=== PATIENT | male | born 1955 | race Caucasian/White ===

== ENCOUNTER 2021-03-21 09:15 | Emergency (ER) | payer MEDICARE ==
--- NOTE | 2021-03-21 09:19 | PCM.EKG ---
#1 Interpretation EKG Date: 03/21/21 Time: 09:12 Rhythm: NSR Rate (Beats/Min): 84 [place]: Normal P-Wave: Present QRS: Normal ST-T: Normal QT: Normal Comparison: NA - No Prior EKG EKG Interpretation Comments: Sinus Rhythm
[2021-03-21] MEDS ORDERED: Aspirin 81 MG Tab.Chew PO ONE (09:36)
[2021-03-21] MEDS ORDERED: Albuterol/Ipratropium 3.0-0.5 MG/3 ML Neb Soln NEB ONE ×2 (09:37→11:21)
[2021-03-21 10:11] LABS: BLOOD UREA NITROGEN,BUN 16 mg/dL (7.0-18.0); CARBON DIOXIDE,CO2 29.3 mmol/L (21.0-32.0); CHLORIDE,CL 106 mmol/L (98-107); GLUCOSE RANDOM 95 mg/dL (74-106); POTASSIUM,K 4.2 mmol/L (3.5-5.1); SODIUM,NA 146 mmol/L (136-148)
--- NOTE | 2021-03-21 10:25 | CR ---
INDICATION: Chest pain and shortness of breath. TECHNIQUE: Chest 1 view. COMPARISON: None. FINDINGS: Cardiovascular and mediastinum: Heart size and vasculature are normal in caliber and appearance. Lungs and pleural spaces: Lungs are hyperinflated but otherwise clear. No effusion and no pneumothorax. Bones and soft tissues: No significant findings. IMPRESSION: Lung hyperinflation consistent with COPD/emphysema. Otherwise no acute or specific finding to explain chest pain or shortness of breath. Dictated by Watson Matute MD @ 03/21/2021 10:24:16 AM (Electronically Signed)
[2021-03-21] MEDS ORDERED: predniSONE 20 MG Tab PO ONE (11:21)
[2021-03-21] MEDS ORDERED: Azithromycin 250 MG Tab PO STA (13:15)
--- NOTE | 2021-03-21 13:23 | EDM.PDOC ---
ED HPI GENERAL MEDICAL PROBLEM - General Chief Complaint: Respiratory Problem Stated Complaint: COPD SOB Time Seen by Provider: 03/21/21 09:18 - History of Present Illness INITIAL COMMENTS - FREE TEXT/NARRATIVE: CHIEF COMPLAINT(S): Chest pain HISTORY OF PRESENT ILLNESS: This is a 65-year-old man with a past medical history of COPD and prior history of right lower extremity arterial stent placement on Eliquis who comes to the emergency department with a chief complaint of chest pain. The patient states that this morning he started to experience chest pain located on his bilateral lateral chest which she describes as sharp without any radiation rated 4 out of 10. He states that it is improved since that time and has some associated shortness of breath. He states that the pain was severe that he lost his breath for a second but seems to have improved. He denies any exacerbating factors or relieving factors. He states that he was at work and he continued to have symptoms so he came to the emergency department. He states that the pain worsens with a cough and has had increased production of phlegm. He denies any recent travel, recent surgery or prior history of DVT or PE. He denies any CAD or CHF. He denies any lower extremity edema REVIEW OF SYSTEMS: Constitutional: Denies fever, chills. Eyes: Denies eye pain Ears, Nose, Mouth, & Throat: Denies earache Cardiovascular: Positive for chest pain Respiratory: Positive for shortness of breath Gastrointestinal: Denies Nausea, vomiting, diarrhea, hematochezia. Genitourinary: Denies hematuria Skin:Denies a rash MSK: Denies joint pain Neurological: Denies blurred vision Psychiatric: Denies depression PAST MEDICAL HISTORY: As per history of present illness and as reviewed below otherwise noncontributory. SURGICAL HISTORY: As per history of present illness and as reviewed below otherwise noncontributory. SOCIAL HISTORY: As per history of present illness and as reviewed below otherwise noncontributory. FAMILY HISTORY: As per history of present illness and as reviewed below otherwise noncontributory. EXAMINATION OF ORGAN SYSTEMS/BODY AREAS: Constitutional: Blood pressure was 148/76, heart rate 89, respiratory rate 17 with an oxygen saturation 95% on room air. Temperature 36.4 General: Well-appearing man who is in no acute distress Psychiatric: Appropriate mood and affect. Eyes: No scleral icterus or conjunctival erythema ENMT: Moist mucous membranes. No pharyngeal erythema Cardiovascular: Regular, rate, and rhythm. No gallops, murmurs, or rubs. Bilateral upper extremity pulses symmetric and intact. No peripheral edema. No JVD. Respiratory: Diminished breath sounds bilaterally. Patient speaking in full sentences. Mild expiratory wheezing bilaterally. Gastrointestinal: Soft, non-tender, non-distended. Normoactive bowel sounds Genitourinary: No suprapubic tenderness Musculoskeletal: Normal range of motion. Skin: No lesions or abrasions. Neurological: Alert, GCS 15 MEDICAL DECISION MAKING AND COURSE IN THE ED WITH INTERPRETATION/REVIEW OF DIAGNOSTIC STUDIES: This is a 65-year-old man with a past medical history of COPD who comes to the emergency department with acute onset bilateral lateral chest pain which is atypical who has normal vital signs and some mild expiratory wheezing on examination. At this time given the patient's increased cough this is likely a COPD exacerbation and his chest pain is atypical for ACS however we will undergo a cardiac work-up given the patient's age. Only 1 troponin is needed at this time as his symptoms have been going on for greater than 4 hours. We will provide the patient with a DuoNeb treatment and reevaluate after that. Will obtain Covid and flu swab. Cardiac monitoring at this time did reveal sinus rhythm and pulse oximetry with good waveform was 95% on room air. Laboratory: CBC is unremarkable. BMP is unremarkable. Magnesium is normal. Troponin is negative. Covid is negative. Influenza is negative. The radiological images were viewed by myself along with reading the report from the radiologist. Chest x-ray does not reveal any acute cardiopulmonary process. There is lung hyperinflation consistent with COPD or emphysema. On reevaluation the patient reported improvement in his symptoms after the treatment. I did discuss with him at this time that we would provide him with an additional DuoNeb treatment, prednisone and azithromycin. I do believe the patient's pain is likely from COPD and discussed treatment at home. He was amenable to discharge after the treatment and had no further questions. DISPOSITION: The patient was discharged home in stable condition. The patient will follow up with primary care physician in 3 to 5 days CONDITION: Fair PROCEDURES: Cardiac monitoring interpretation, pulse oximetry interpretation FINAL IMPRESSION(S)/DIAGNOSES: 1. Acute COPD exacerbation 2. Acute atypical chest pain Kailash Duran M.D. lungs Pain Score (Numeric/FACES): 1 - Related Data Allergies Allergy/AdvReac Type Severity Reaction Status Date / Time No Known Allergies Allergy Verified 03/21/21 09:26 Home Meds: Home Meds Anoro 1 puff INH DAILY 03/21/21 [History] Apixaban [Eliquis] 1 tab PO DAILY 03/21/21 [History] Aspirin [Rafael Chewable Aspirin] 81 mg PO DAILY 03/21/21 [History] Azithromycin [Zithromax] 250 mg PO DAILY #4 tab 03/21/21 [Rx] Clopidogrel [Plavix] 75 mg PO DAILY 03/21/21 [History] atorvaSTATin [Lipitor] 20 mg PO DAILY 03/21/21 [History] predniSONE [Prednisone] 50 mg PO DAILY #5 tablet 03/21/21 [Rx] Past Medical History HEENT History: Reports: None Cardiovascular History: Reports: High Cholesterol Respiratory History: Reports: COPD Gastrointestinal History: Reports: None Genitourinary History: Reports: None Musculoskeletal History: Reports: None Neurological History: Reports: TIA Psychiatric History: Reports: None Endocrine/Metabolic History: Reports: None Hematologic History: Reports: None Immunologic History: Reports: None Oncologic (Cancer) History: Reports: None Dermatologic History: Reports: None - Infectious Disease History Infectious Disease History: Reports: None - Past Surgical History HEENT Surgical History: Reports: None Cardiovascular Surgical History: Reports: None Respiratory Surgical History: Reports: None GI Surgical History: Reports: None Male Surgical History: Reports: None Endocrine Surgical History: Reports: None Neurological Surgical History: Reports: None Musculoskeletal Surgical History: Reports: None Oncologic Surgical History: Reports: None Dermatological Surgical History: Reports: None Social & Family History - Family History Family Medical History: No Pertinent Family History - Tobacco Use Tobacco Use Status *Q: Former Tobacco User Used Tobacco, but Quit: Yes Month/Year Tobacco Last Used: 10years - Caffeine Use Caffeine Use: Reports: None - Recreational Drug Use Recreational Drug Use: No ED ROS GENERAL - Review of Systems Review Of Systems: See Below ED EXAM, GENERAL - Physical Exam Exam: See Below Course - Vital Signs Last Recorded V/S: Last Vital Signs Temp 36.3 C 03/21/21 13:37 Pulse 84 03/21/21 13:37 Resp 18 03/21/21 13:37 BP 143/75 H 03/21/21 13:37 Pulse Ox 94 L 03/21/21 13:37 - Orders/Labs/Meds Orders: Active Orders 24 hr Category Date Time Status Isolation [COMM] Routine Oth 03/21/21 09:20 Active Labs: Laboratory Tests 03/21/21 03/21/21 03/21/21 Range/Units 09:27 09:27 09:29 WBC 8.99 (4.0-11.0) K/uL RBC 5.31 (4.50-5.90) M/uL Hgb 16.5 (13.0-17.0) g/dL Hct 47.4 (38.0-50.0) % MCV 89.3 (80.0-98.0) fL MCH 31.1 (27.0-32.0) pg MCHC 34.8 (31.0-37.0) g/dL RDW Std Deviation 45.3 (28.0-62.0) fl RDW Coeff of Jere 14 (11.0-15.0) % Plt Count 234 (150-400) K/uL MPV 11.50 (7.40-12.00) fL Neut % (Auto) 71.7 (48.0-80.0) % Lymph % (Auto) 16.7 (16.0-40.0) % [place] % (Auto) 9.5 (0.0-15.0) % Eos % (Auto) 1.9 (0.0-7.0) % Baso % (Auto) 0.2 (0.0-1.5) % Neut # (Auto) 6.5 H (1.4-5.7) K/uL Lymph # (Auto) 1.5 (0.6-2.4) K/uL [place] # (Auto) 0.9 H (0.0-0.8) K/uL Eos # (Auto) 0.2 (0.0-0.7) K/uL Baso # (Auto) 0.0 (0.0-0.1) K/uL Nucleated RBC % 0.0 /100WBC Nucleated RBCs # 0 K/uL Sodium 146 (136-148) mmol/L Potassium 4.2 (3.5-5.1) mmol/L Chloride 106 (98-107) mmol/L Carbon Dioxide 29.3 (21.0-32.0) mmol/L BUN 16 (7.0-18.0) mg/dL Creatinine 1.0 (0.8-1.3) mg/dL Est Cr Clr Drug Dosing 71.25 mL/min Estimated GFR (MDRD) > 60.0 ml/min Glucose 95 (74-106) mg/dL Calcium 8.7 (8.5-10.1) mg/dL Magnesium 2.0 (1.8-2.4) mg/dL Troponin I < 0.050 (0.000-0.056) ng/mL SARS-CoV-2 RNA ([place]AT) NEGATIVE (NEGATIVE) Meds: Medications Discontinued Medications Generic Name Dose Route Start Last Admin Trade Name Freq PRN Reason Stop Dose Admin Albuterol/Ipratropium 3 ml 03/21/21 09:37 03/21/21 09:41 Albuterol/Ipratropium 3.0-0.5 Mg/3 Ml Neb Soln NEB 03/21/21 09:38 3 ml ONETIME ONE Administration Albuterol/Ipratropium 3 ml 03/21/21 11:21 03/21/21 11:32 Albuterol/Ipratropium 3.0-0.5 Mg/3 Ml Neb Soln NEB 03/21/21 11:22 3 ml ONETIME ONE Administration Aspirin 324 mg 03/21/21 09:36 03/21/21 09:41 Aspirin 81 Mg Tab.Chew PO 03/21/21 09:37 324 mg ONETIME ONE Administration Azithromycin 500 mg 03/21/21 13:15 03/21/21 13:32 Azithromycin 250 Mg Tab PO 03/21/21 13:16 500 mg ONETIME STA Administration Prednisone 60 mg 03/21/21 11:21 03/21/21 11:31 Prednisone 20 Mg Tab PO 03/21/21 11:22 60 mg ONETIME ONE Administration Departure - Departure Time of Disposition: 13:22 Disposition: Home, Self-Care 01 Condition: Fair Clinical Impression: COPD exacerbation - Discharge Information *PRESCRIPTION DRUG MONITORING PROGRAM REVIEWED*: No *COPY OF PRESCRIPTION DRUG MONITORING REPORT IN PATIENT SOPHIA: No Prescriptions: predniSONE [Prednisone] 50 mg PO DAILY #5 tablet Azithromycin [Zithromax] 250 mg PO DAILY #4 tab Instructions: Chronic Obstructive Pulmonary Disease Exacerbation, [id number] Referrals: PCP,Not In Area [Primary Care Provider] - Forms: ED Department Discharge Additional Instructions: You were evaluated today on an emergent basis. At this time your work-up was negative. I do believe your symptoms are likely due to a COPD exacerbation as our treatments did improve your symptoms. I recommend that you use your rescue inhaler every 4 hours today and then as needed after this. Please take the steroids as prescribed and the antibiotics as prescribed. As discussed if you have any worsening symptoms I would like you to return to the emergency department. Those symptoms include worsening chest pain, shortness of breath, passing out. I would like you to follow-up with your primary care physician in 2 to 3 days. [facility] [address] [place] [id number] [address] [id number] The patient is informed of any results of their evaluation and diagnostic workup and all questions are answered. They are given discharge instructions and return precautions. The patient is stable for discharge. The patient states they understand and agree with the plan and that they will return if their symptoms get worse or if they have any new concerns. The following information is given to patients seen in the emergency department who are being discharged to home. This information is to outline your options for follow-up care. We provide all patients seen in our emergency department with a follow-up referral. The need for follow-up, as well as the timing and circumstances, are variable depending upon the specifics of your emergency department visit. If you don't have a primary care physician on staff, we will provide you with a referral. We always advise you to contact your personal physician following an emergency department visit to inform them of the circumstance of the visit and for follow-up with them and/or the need for any referrals to a consulting specialist. The emergency department will also refer you to a specialist when appropriate. This referral assures that you have the opportunity for follow-up care with a specialist. All of these measure are taken in an effort to provide you with optimal care, which includes your follow-up. Under all circumstances we always encourage you to contact your private physician who remains a resource for coordinating your care. When calling for follow-up care, please make the office aware that this follow-up is from your recent emergency room visit. If for any reason you are refused follow-up, please contact the [facility] Department at and asked to speak to the emergency department charge nurse. Sepsis Event Note (ED) - Evaluation Sepsis Screening Result: No Definite Risk - Focused Exam Vital Signs: Vital Signs Temp Pulse Resp BP Pulse Ox 03/21/21 13:37 36.3 C 84 18 143/75 H 94 L 03/21/21 11:49 83 18 123/66 97 03/21/21 10:49 85 17 143/74 H 93 L 03/21/21 09:27 36.4 C 89 17 148/76 H 95 - My Orders Last 24 Hours: My Active Orders 03/21/21 09:20 Isolation [COMM] Routine - Assessment/Plan Last 24 Hours: My Active Orders 03/21/21 09:20 Isolation [COMM] Routine
== END 2021-03-21 13:38 | disposition home or self-care (01) ==
LOC: MW.ED 09:15
DX: R07.89 Other chest pain (principal); J44.1 Chronic obstructive pulmonary disease with (acute) exacerbation; E78.00 Pure hypercholesterolemia, unspecified; Z86.73 Personal history of transient ischemic attack (TIA), and cerebral infarction without residual deficits; Z79.82 Long term (current) use of aspirin; Z79.01 Long term (current) use of anticoagulants; Z79.899 Other long term (current) drug therapy; Z87.891 Personal history of nicotine dependence; Z20.822 Contact with and (suspected) exposure to COVID-19
CPT/HCPCS: 36415; 71045; 80048; 83735; 84484; 85025; 87804; 93005; 99285; A9270; U0002; J7620-GY